=== PATIENT | female | born 1945 | race Caucasian/White ===

== ENCOUNTER 2023-09-26 06:10 | Day surgery (SDC) | payer MEDICARE, SELFPAY ==
[2023-09-26] VITALS (8 sets, daily range): BP systolic 107–158; BP diastolic 50–74; BMI 27.0
[2023-09-26] MEDS: NORMOSOL-R 1000 IV (07:35)
[2023-09-26] MEDS: TYLENOL 1000 MG PO (07:53)
== END 2023-09-26 10:47 | disposition home or self-care (01) ==
LOC: SDS 06:10
PROVIDERS: ATTENDING PHYSICIAN Otolaryngology
DX: K14.9 Disease of tongue, unspecified (principal)
CPT/HCPCS: 41112; 88305; 88341; 88342

== ENCOUNTER → 2023-12-11 10:01 | Outpatient (REF) | payer MEDICARE, SELFPAY | LOC: RCS 10:01 | PROVIDERS: ATTENDING PHYSICIAN Physical Medicine & Rehabilitation; FAMILY PHYSICIAN Family Medicine | DX: Z01.818 Encounter for other preprocedural examination (principal) | CPT/HCPCS: 93005 ==

== ENCOUNTER → 2023-12-24 11:41 | Outpatient (REF) | payer MEDICARE, SELFPAY | LOC: HWWDC 11:41 | PROVIDERS: ATTENDING PHYSICIAN Family Medicine; FAMILY PHYSICIAN Family Medicine | DX: Z12.31 Encounter for screening mammogram for malignant neoplasm of breast (principal) | CPT/HCPCS: 77063; 77067 ==

== ENCOUNTER → 2024-03-25 10:34 | Outpatient (REF) | payer MEDICARE, SELFPAY | LOC: WDC 10:34 | PROVIDERS: ATTENDING PHYSICIAN Family Medicine | DX: R92.2 Inconclusive mammogram (principal) | CPT/HCPCS: 76641 ==

== ENCOUNTER → 2024-11-26 09:41 | Outpatient (REF) | payer MEDICARE, SELFPAY | LOC: HWRAD 09:41 | PROVIDERS: ATTENDING PHYSICIAN Nurse Practitioner; FAMILY PHYSICIAN Family Medicine | DX: N39.0 Urinary tract infection, site not specified (principal) | CPT/HCPCS: 76770; 76856 ==

== ENCOUNTER → 2024-12-17 12:37 | Outpatient (REF) | payer MEDICARE, SELFPAY | LOC: RAD 12:37 | PROVIDERS: ATTENDING PHYSICIAN Nurse Practitioner; FAMILY PHYSICIAN Family Medicine | DX: N13.39 Other hydronephrosis (principal); N28.1 Cyst of kidney, acquired; N89.8 Other specified noninflammatory disorders of vagina | CPT/HCPCS: 74178; Q9967 ==

== ENCOUNTER → 2025-02-05 13:28 | Outpatient (REF) | payer MEDICARE, SELFPAY | LOC: WDC 13:28 | PROVIDERS: ATTENDING PHYSICIAN Family Medicine | DX: Z12.31 Encounter for screening mammogram for malignant neoplasm of breast (principal) | CPT/HCPCS: 77063; 77067 ==